=== PATIENT | female | born 1945 | race Caucasian/White ===

== ENCOUNTER 2020-12-04 13:59 | Outpatient (CLI) | payer MEDICARE, SELFPAY ==
--- NOTE | 2020-12-04 14:07 | CT_ITS ---
WS: [id number] CTA OF THE CHEST WITH PULMONARY EMBOLISM PROTOCOL TECHNIQUE: High-resolution contrast enhanced CTA of the chest with coronal and sagittal reformatted i mages with pulmonary embolism protocol. MIP images are also reviewed. CLINICAL INFORMATION: HISTORY OF COVID-19, HISTORY OF PULMONARY EMBOLISM, SOB COMPARISON: CTA and DLP: 740.[address] scans at [facility] use at least one of these dose optimization techniques: automat ed exposure control; mA and/or kV adjustment per patient size (includes targeted exams where dose is matched to clinical indication); or iterative reconstruction. FINDINGS: Proximal main pulmonary arteries are normal. New filling defects involving the left upper segmental p ulmonary artery and left lower segmental and subsegmental pulmonary arteries consistent with new pulm onary embolus. This is new since the prior examination . Right-sided pulmonary arteries are well-opacified. No visualized right pulmonary artery filling defects. Normal caliber thoracic aorta. Aortic calcification. No mediastinal or hilar lymphadenopathy. No axil adelso lymphadenopathy. Mild chronic emphysematous changes. Hazy atelectasis in the lung bases. No foca l pneumonia or pleural fluid. Cholecystectomy clips. Adrenal glands are normal. Small esophageal hiatal hernia. CT/CT angio chest PE protcl [id number] IMPRESSION: 1. Acute pulmonary embolus with multiple new filling defects involving the lef t upper and lower segmental and subsegmental pulmonary arteries worse in the le ft lower lobe. No visualized right-sided filling defects. 2. Proximal main pulmonary arteries are normal. 3. Normal caliber thoracic aorta. 4. Moderate chronic emphysematous changes. No acute pulmonary infiltrates. Haz y atelectasis in the lung bases. Findings discussed with Dr. Ruiz's nurse Sherin 12/04/2020 4:07 PM.
[2020-12-04] MEDS: iodixanol 320 mg/mL 100mL Btl IV (14:51)
== END 2020-12-04 14:00 | disposition home or self-care (01) ==
PROVIDERS: PCP Family Medicine; Visit Provider Family Medicine
DX: Z86.16 Personal history of COVID-19 (principal); Z86.711 Personal history of pulmonary embolism; R06.02 Shortness of breath; J98.11 Atelectasis; I26.99 Other pulmonary embolism without acute cor pulmonale
CPT/HCPCS: 71275; Q9967